=== PATIENT | male | born 1955 | race Caucasian/White ===

== ENCOUNTER 2024-01-08 06:40 | Observation (INO) ==
--- NOTE | 2024-01-08 07:00 | Emergency Department Note ---
History of Present Illness General Chief complaint: Vertigo Stated complaint: DIZZY Time Seen by Provider: 01/08/24 06:53 History of Present Illness This is a 68-year-old male that presents to the emergency department via private vehicle with complaints of "dizziness". The patient states that this morning around 0515 he began with dizziness described as the room is spinning with associated nausea. He also notes associated sinus pressure in the bilateral ears for the past 48 hours. Over the past month he has been treated for sinus infection. He does have a history of vertigo. Patient did take meclizine just prior to arrival with some improvement. At the present time he notes laying in the examination bed there is no current vertigo. He states that the vertigo does return with quick movements which seems to be what restarted his vertigo symptoms this morning when he quickly turned to get up out of bed. He does note some discomfort in the nasal region and occipital head which he describes as pressure. Patient states that he has been on antibiotics recently and shortly after completing the antibiotic course as prescribed he notes return of sinus congestion/sinus symptoms. He has been taking Claritin as well. No chest pain or shortness of breath. No fevers. No head trauma. Patient does note a history of vertigo that does feel similar to current presentation. He has had several intermittent episodes of vertigo as of recent with his ear pressure and sinus congestion. Last significant episode was 2 years ago and did require therapy. Review of the EMR does show PCP visit from 12/23/2023. At that time patient was diagnosed with a URI and due to chronicity of symptoms was started on prednisone and doxycycline. On 12/31/2023 patient did have a cardiology visit with Dr. Loera. Patient does have a history of bicuspid aortic with moderate to severe aortic regurgitation. Aortic root measures 4.6 cm with a 5.3 cm ascending aorta and dilated arch. The patient is status post aortic valve replacement with procedures performed on 03/11/2023 at [facility] by Dr. Camilo. Cardiology visit does document echo from 07/2023 revealing: Normal left ventricular size and systolic function; abnormal septal motion consistent with postoperative state: The basal to mid inferior and inferioseptum are akinetic. Ejection fraction 55%. Probable type II DD; mildly dilated right ventricle with severely reduced systolic function. In addition upon review of the EMR: Patient did have a CT head Noncontrast, CT angio head, MRI brain performed on November 13, 2022 in [place]. Ultimately at that time, the MRI returned normal. Home Medications Medication Instructions Recorded Confirmed Type apixaban 5 mg tablet (Eliquis) 5 mg PO BID 11/30/23 01/08/24 History dofetilide 500 mcg capsule 500 mcg PO Q12H 11/30/23 01/08/24 History ezetimibe 10 mg tablet 10 mg PO QAM 11/30/23 01/08/24 History furosemide 20 mg tablet (Lasix) 20 mg PO .COMPLEX 11/30/23 01/08/24 History meclizine 25 mg tablet 25 mg PO QID #30 tabs 12/10/23 01/08/24 Rx fluticasone propionate 50 2 spray intranasal Q12H #48 grams 01/06/24 01/08/24 Rx mcg/actuation nasal spray,suspension amoxicillin 500 mg capsule 2,000 mg PO .1HR BEFORE DENTAL PRN 01/08/24 01/08/24 History dental appointment aspirin 81 mg capsule 81 mg PO QAM 01/08/24 01/08/24 History cefdinir 300 mg capsule 300 mg PO BID Acute otitis media, 01/08/24 Rx left 5 days #10 caps diazepam 5 mg tablet (Valium) 5 mg PO DAILY PRN severe vertigo 01/08/24 Rx #3 tabs fluticasone propionate 50 1 spray intranasal DAILY PRN 01/08/24 Rx mcg/actuation nasal allergy symptoms #16 grams spray,suspension (Flonase Allergy Relief) ondansetron 4 mg disintegrating 4 mg PO Q6H PRN nausea and 01/08/24 Rx tablet vomiting #10 tabs prednisone 10 mg tablet See Rx Instructions PO .COMPLEX 01/08/24 Rx #42 tabs rosuvastatin 40 mg tablet 40 mg PO QPM 01/08/24 01/08/24 History Allergies Allergy/AdvReac Type Severity Reaction Status Date / Time No Known Allergies Allergy Verified 12/23/23 14:44 Past Med/Surg History Medical History Aortic valve regurgitation Surgical History H/O aortic valve replacement H/O heart artery stent Family History Father Prostate cancer Heart disease Cancer Diabetes Mother Kidney disease Denies family history of Ovarian cancer Breast cancer Colorectal cancer Social History Smoking Status: Never smoker Second Hand Exposure: No; Do You Dip or Chew Tobacco: No; Hx Alcohol Use: No Hx Substance Use: No Preferred Language: Thai Communication Ability: Effective Visual Impairment: No Limitations Hearing Ability: Normal Brass Chaser Required: No marital status: Current Living Situation: Spouse current occupational status: retired How many Children do You have: 2 Feels Safe at Home: Yes Childhood Exposure to Second-Hand Smoke: No Diet: regular caffeine: Yes during the past year weight has: increased > 10 lbs Dental Care, Regularly: Yes Physical Activity Frequency: Daily Seatbelt Use: always Sunscreen Use: Yes Assistive Devices: None Review of Systems A total of 10 systems reviewed and were otherwise negative Physical Exam Vital Signs Vital Signs - 24 hr 01/08/24 06:43 01/08/24 07:21 01/08/24 07:30 Temperature 36.2 C L Temperature Source Temporal Artery Scan Pulse Rate 67 68 71 Pulse Rate [Apical] Pulse Rate from SpO2 Sensor 69 71 Respiratory Rate 18 19 19 Respiratory Depth Blood Pressure 150/90 H Blood Pressure [Right Arm] Blood Pressure Mean 110 Blood Pressure Mean [Right Arm] Blood Pressure Position [Right Arm] Pulse Oximetry 96 93 96 Oxygen Delivery Method Room Air Room Air Room Air Sepsis Recent Fever Within 48 Hours No Sepsis New/Unexplained Change in Mental Status No Sepsis Action Taken by Nursing No Action Required 01/08/24 07:30 01/08/24 08:00 01/08/24 08:00 Temperature Temperature Source Pulse Rate 68 Pulse Rate [Apical] Pulse Rate from SpO2 Sensor 68 Respiratory Rate 16 Respiratory Depth Blood Pressure 131/89 124/89 Blood Pressure [Right Arm] Blood Pressure Mean 100 102 Blood Pressure Mean [Right Arm] Blood Pressure Position [Right Arm] Pulse Oximetry 92 Oxygen Delivery Method Room Air Sepsis Recent Fever Within 48 Hours Sepsis New/Unexplained Change in Mental Status Sepsis Action Taken by Nursing 01/08/24 08:24 01/08/24 08:30 01/08/24 08:30 Temperature Temperature Source Pulse Rate 66 69 Pulse Rate [Apical] Pulse Rate from SpO2 Sensor 69 Respiratory Rate 18 Respiratory Depth Blood Pressure 130/84 Blood Pressure [Right Arm] Blood Pressure Mean 98 Blood Pressure Mean [Right Arm] Blood Pressure Position [Right Arm] Pulse Oximetry 93 Oxygen Delivery Method Room Air Sepsis Recent Fever Within 48 Hours Sepsis New/Unexplained Change in Mental Status Sepsis Action Taken by Nursing 01/08/24 09:00 01/08/24 09:00 01/08/24 09:30 Temperature Temperature Source Pulse Rate 65 Pulse Rate [Apical] Pulse Rate from SpO2 Sensor 65 Respiratory Rate 19 Respiratory Depth Blood Pressure 128/89 123/88 Blood Pressure [Right Arm] Blood Pressure Mean 94 105 Blood Pressure Mean [Right Arm] Blood Pressure Position [Right Arm] Pulse Oximetry 96 Oxygen Delivery Method Room Air Sepsis Recent Fever Within 48 Hours Sepsis New/Unexplained Change in Mental Status Sepsis Action Taken by Nursing 01/08/24 09:30 01/08/24 10:00 01/08/24 10:00 Temperature Temperature Source Pulse Rate 64 68 Pulse Rate [Apical] Pulse Rate from SpO2 Sensor 65 69 Respiratory Rate 15 17 Respiratory Depth Blood Pressure 123/94 Blood Pressure [Right Arm] Blood Pressure Mean 109 Blood Pressure Mean [Right Arm] Blood Pressure Position [Right Arm] Pulse Oximetry 95 95 Oxygen Delivery Method Sepsis Recent Fever Within 48 Hours Sepsis New/Unexplained Change in Mental Status Sepsis Action Taken by Nursing 01/08/24 10:30 01/08/24 10:31 01/08/24 10:31 Temperature Temperature Source Pulse Rate 70 76 Pulse Rate [Apical] Pulse Rate from SpO2 Sensor 70 75 Respiratory Rate 20 17 Respiratory Depth Blood Pressure 132/88 Blood Pressure [Right Arm] Blood Pressure Mean 94 Blood Pressure Mean [Right Arm] Blood Pressure Position [Right Arm] Pulse Oximetry 97 97 Oxygen Delivery Method Room Air Sepsis Recent Fever Within 48 Hours Sepsis New/Unexplained Change in Mental Status Sepsis Action Taken by Nursing 01/08/24 13:07 01/08/24 14:13 Temperature Temperature Source Pulse Rate Pulse Rate [Apical] 87 84 Pulse Rate from SpO2 Sensor Respiratory Rate 18 18 Respiratory Depth Normal Blood Pressure Blood Pressure [Right Arm] 124/81 121/87 Blood Pressure Mean Blood Pressure Mean [Right Arm] 95 98 Blood Pressure Position [Right Arm] Lying Pulse Oximetry 95 98 Oxygen Delivery Method Room Air Room Air Sepsis Recent Fever Within 48 Hours Sepsis New/Unexplained Change in Mental Status Sepsis Action Taken by Nursing VITAL SIGNS - Vital signs and nursing notes were reviewed. Stable and afebrile. GENERAL - 68-year-old male appearing his stated age who is in no acute distress. Communicates well with provider and answers questions appropriately. SKIN - Without rashes. HEAD - NC/AT. EYES - PERRL with EOMI bilaterally. Sclera anicteric. Palpebral conjunctiva pink and moist with no injection noted. EARS - No deformities of external structures noted on gross examination bilaterally. No pain elicited with palpation of the tragus bilaterally. External auditory canals without discharge or otorrhea. Yellowish fluid present behind bilateral TMs without evidence of acute otitis media. No perforation. Handle of malleus, umbo, cone of light, pars tensa/flaccid all easily visualized. NOSE - Midline and without cyanosis. No epistaxis or purulent drainage noted. Septum midline without deviation or septal hematoma noted. MOUTH/OROPHARYNX - Without perioral cyanosis. Buccal mucosa pink and moist and without leukoplakia. Tongue midline with equal elevation of palate bilaterally. No tonsillar hypertrophy, erythema, or exudates noted. Good dentition noted. NECK - Neck with FROM. Supple to palpation. No lymphadenopathy noted. No nuchal rigidity. LUNGS - Chest wall symmetric without accessory muscle use, intercostals retractions, or central cyanosis. Normal vesicular breath sounds CTA B/L. No wheezes, rales, or rhonchi appreciated. CARDIAC - RRR ABDOMEN - Abdominal contour normal without pulsations or visible masses. BS normoactive all four quadrants. No tenderness, palpable masses, hepatosplenomegaly, or ascites noted. EXTREMITIES - No clubbing or peripheral cyanosis. No pretibial edema present. +5/5 strength noted in UE/LE bilaterally. NEUROLOGIC - Cranial nerves II through XII grossly intact. PSYCH - A&O. Pt is very pleasant and interacts well with examiner. Course Administered Medications Discontinued Medications Acetaminophen (Acetaminophen 325 Mg Tab) 650 mg PO NOW STA Stop: 01/08/24 13:27 Last Admin: 01/08/24 13:30 Dose: 650 mg Documented By: ANDREW Sodium Chloride (Nss) 500 mls @ 500 mls/hr IV .Q1H ONE Stop: 01/08/24 08:35 Last Infusion: 01/08/24 09:15 Dose: Infused Documented By: Admin: 01/08/24 07:54 Dose: 500 mls/hr Documented By: AMALIA Ceftriaxone Sodium (Rocephin) 50 mls @ 100 mls/hr IV ONE STA; Protocol Stop: 01/08/24 16:02 Last Infusion: 01/08/24 16:38 Dose: Infused Documented By: Admin: 01/08/24 16:04 Dose: 100 mls/hr Documented By: CARRILLO Loratadine (Loratadine 10 Mg Tab) 10 mg PO QAM CHELSEA Stop: 02/07/24 14:59 Last Admin: 01/08/24 16:03 Dose: 10 mg Documented By: CARRILLO Ondansetron HCl (Ondansetron Inj 2 Mg/Ml 2 Ml Vial) 4 mg IV NOW STA Stop: 01/08/24 07:42 Last Admin: 01/08/24 07:54 Dose: 4 mg Documented By: AMALIA Medical Decision Making Laboratory Data 01/08/24 Unknown 01/08/24 Unknown Lab Results 01/08/24 01/08/24 Range/Units 15:28 Unknown WBC 6.15 (4.8-10.8) K/ul RBC 4.96 (4.70-6.10) M/uL Hgb 15.6 (14.0-18.0) g/dl Hct 46.6 (42.0-52.0) % MCV 94.0 (80.0-100.0) fL MCH 31.5 (25.0-34.0) pg MCHC 33.5 (32.0-36.0) g/dL RDW Std Deviation 48.1 H (36.4-46.3) fL RDW Coeff of Malena 13.9 (11.5-14.5) % Plt Count 126 L (130-400) K/uL MPV 10.7 (9.4-12.4) fL Immature Gran % (Auto) 0.8 % Neut % (Auto) 56.6 % Lymph % (Auto) 28.6 % Dougherty % (Auto) 11.2 % Eos % (Auto) 2.0 % Baso % (Auto) 0.8 % Neut # (Auto) 3.48 (1.40-6.50) K/uL Lymph # (Auto) 1.76 (1.20-3.40) K/uL Dougherty # (Auto) 0.69 H (0.11-0.59) K/uL Eos # (Auto) 0.12 (0.00-0.50) K/uL Baso # (Auto) 0.05 (0.00-0.20) K/uL Immature Gran # (Auto) 0.05 (0.01-0.20) K/uL PT 10.0 (9.0-12.0) Seconds INR 0.9 (0.9-1.1) APTT 24 (21-31) Seconds PTT Ratio 0.9 Sodium 142 (136-145) mmol/L Potassium 4.7 (3.5-5.1) mmol/L Chloride 110 H (98-107) mmol/L Carbon Dioxide 28 (21-32) mmol/L Anion Gap 4 (3-11) BUN 11 (6-23) mg/dl Creatinine 0.92 (0.6-1.4) mg/dl Est Cr Clr Drug Dosing 89.1 ml/min Est GFR ( Amer) 100.1 ml/min Est GFR (Non-Af Amer) 86.4 ml/min BUN/Creatinine Ratio 12.0 (10-20) Glucose 114 H (70-99(Fasting)) mg/dl Calcium 8.8 (8.6-10.3) mg/dl Total Bilirubin 0.5 (0.2-1.0) mg/dl AST 21 (13-39) U/L ALT 32 (7-52) U/L Alkaline Phosphatase 59 (34-104) U/L Troponin I High Sens 4.9 (0-20) pg/ml Total Protein 6.4 (6.0-8.3) gm/dl Albumin 3.8 (3.4-5.0) gm/dl Globulin 2.6 (2.5-4.0) gm/dl Albumin/Globulin Ratio 1.5 (0.9-2) TSH 5.284 H (0.300-4.500) uIu/ml Free T4 0.80 (0.61-1.60) ng/dl Adenovirus (PCR) Not Detected (NotDetected) B. pertussis DNA (PCR) Not Detected (NotDetected) B.parapertussis DNA PCR Not Detected (NotDetected) C. pneumoniae DNA (PCR) Not Detected (NotDetected) Coronavirus OC43 (PCR) Not Detected (NotDetected) Coronavirus HKU1 (PCR) Not Detected (NotDetected) Coronavirus 229E (PCR) Not Detected (NotDetected) SARS-CoV-2 (PCR) Not Detected (NotDetected) Coronavirus NL63 (PCR) Not Detected (NotDetected) Human Metapneumovir PCR Not Detected (NotDetected) Influenza Type A (PCR) Not Detected (NotDetected) Influenza Type B (PCR) Not Detected (NotDetected) M. pneumoniae (PCR) Not Detected (NotDetected) Parainfluenza 1 (PCR) Not Detected (NotDetected) Parainfluenza 2 (PCR) Not Detected (NotDetected) Parainfluenza 3 (PCR) Not Detected (NotDetected) Parainfluenza 4 (PCR) Not Detected (NotDetected) RSV (PCR) Not Detected (NotDetected) Entero/Rhino (PCR) Not Detected (NotDetected) Imaging Data Radiologist's Impression: Brain MRI 01/08/24 09:51 MRI OF THE BRAIN WITHOUT CONTRAST CLINICAL HISTORY: vertigo, dizziness, headache COMPARISON STUDY: Head CT performed earlier today. TECHNIQUE: Utilizing a 1.5 Bev magnet and dedicated coil, multiplanar, multiecho imaging of the brain was performed without IV contrast. FINDINGS: There are no foci of restricted diffusion to suggest acute infarct. No acute intracranial hemorrhage, midline shift or mass effect is present. Brain volume is normal. Basal cisterns are patent. There are no extra-axial collections. Flow-voids for the major intracranial vessels are present. 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 Mild white matter T2 hyperintense foci suggest small vessel disease. Calvarial signal is normal. No orbital abnormality is identified. IMPRESSION: 1. No acute intracranial findings. 2. 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 Mild small vessel disease. ACT 112: Negative or not required by law. Electronically signed by: Teja Nichole M.D. 01/08/2024 12:[address] SCAN OF THE BRAIN WITHOUT IV CONTRAST CLINICAL HISTORY: Headache. Vertigo. COMPARISON STUDY: No priors. TECHNIQUE: Unenhanced axial CT scan of the brain is performed from the vertex to the skull base. A dose lowering technique was utilized adhering to the principles of ALARA. CT DOSE: 625.8 mGy.cm FINDINGS: Brain parenchyma: There is minimal microangiopathic change. There is no hemorrhage, mass effect, or evidence of acute territorial ischemia by CT criteria. Gutierrez-white matter differentiation is preserved. No extra-axial fluid collection is seen. Ventricles, sulci, cisterns: Normal in configuration. Intracranial vasculature: There is atherosclerotic calcification of the cavernous carotid and vertebral arteries. Calvarium: Unremarkable. Sinuses and mastoids: The visualized paranasal sinuses are clear. The mastoid air cells are well pneumatized. Orbits: The bony orbits are grossly intact. IMPRESSION: There is no hemorrhage, mass effect, or evidence of acute territorial ischemia by CT criteria. ACT 112: Negative or not required by law. Electronically signed by: Candelario Bueno M.D. 01/08/2024 8:22 AM [facility] Narrative Patient was seen and evaluated as above in room B03. Review was performed of triage nursing notes and vital signs. I did review pertinent previous visits and patient history. After obtaining a thorough history and physical examination the above work up was performed. Patient presents to us today for evaluation of vertigo. He also has a headache with the vertigo. Over the past several weeks he has been experiencing sinus congestion and has been on amoxicillin, Augmentin and doxycycline as well as 2 rounds of prednisone per review of EMR. The patient's vertigo symptoms are positional. He did take meclizine earlier today and on my examination of the patient presently there is no current vertigo symptoms. No nystagmus. No deficits. No fever. No evidence of meningitis or encephalitis. No signs of head trauma/injury. GCS: 15. Options of care were discussed with the patient. IV access was established. Labs were drawn. EKG was obtained and reveals normal sinus rhythm at a rate of 70 bpm. QTc 451. QRS 74. No ST elevation. With the patient's vertigo symptoms improving with the meclizine but with continued nausea, we will proceed with IV Zofran, and will replete fluid lost through his vomiting today via IV fluids. Labs reveal no leukocytosis or concerning anemia. Mild thrombocytopenia with platelet count at 126. Mild elevation of chloride at 110. No emergent metabolic disturbance. Mild hyperglycemia 114. TSH mildly elevated at 5.2 with a normal free T4. Troponin within normal range. CT head noncontrast returned negative. Patient symptoms continued with movement therefore MRI of the brain was performed. MRI results as above. No acute intracranial findings. 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 Mild small vessel disease per radiologist. I did discuss this with neurology, and spoke with Dr. Mireles. At this time outpatient follow-up is recommended and he may require physical therapy for the vertigo and neurology follow-up as an outpatient. Neurology also recommended considering a benzodiazepine such as diazepam or lorazepam. I will note that the patient's vertigo symptoms are felt to be likely secondary to his inner ear issues noting the recent sinus congestion rather than from the MRI findings. I then reviewed these findings recommendations with the patient. Patient is concerned that he may return home and not be able to manage symptoms noting even return of symptoms while laying in the examination bed. With the patient's persistence of symptoms and findings above I did discuss case with the hospitalist service for possible admission. I was then notified by the hospitalist that after they examined the patient and reviewed plan, preferences discharge home. I then reviewed this with the patient and he does prefer discharge home. Please refer to the hospitalist note regarding consultation. A large portion of the discharge instructions were generated by the hospitalist as well as prescriptions for multiple medications. However, I did also add Flonase at the recommendation of the hospitalist. At this time the patient will be discharged home to follow closely with his primary care provider. Patient happy with this plan and notes that he will return with any worsening or persistence of symptoms. I did provide contact information for local ENT follow-up as well. Please note that the discharge instructions viewable in this note are not premium representative of the patient's complete discharge instructions as most were generated by the hospitalist therefore please refer to the patient's "ED discharge packet" in the EMR regarding complete discharge instructions. While in the department, I personally reevaluated the patient several times and each time the patient was found to be resting comfortably. The patient was educated upon management, educated upon todays findings/results, educated upon importance of follow up from today's visit, educated upon symptoms in which to return, had questions answered prior to discharge, verbalized understanding, and was discharged home in good condition. Case was discussed with the attending physician. GCS: 15 In the evaluation and treatment of this patient the following differential diagnoses were entertained: Meningitis, encephalitis, BPPV, malignancy, stroke, mass, electrolyte disturbance, A-fib, among others Impression & Plan Vertigo, Sinus congestion Discharge Plan Visit Data Chief Complaint: Vertigo Stated Complaint: DIZZY ED Provider: Candelario Pollard ED Midlevel Provider: Efren Fernandez Discharge Problem: Vertigo, Sinus congestion Patient Disposition: Admitted As Inpatient Condition: Good Discharge Instructions Interventions: ED Discharge Assessment Last Done: 01/08/24 16:50
[2024-01-08 07:47] LABS: Basophils # (auto) 0.05 K/uL (0.00-0.20); Basophils % (auto) 0.8 %; Eosinophils # (auto) 0.12 K/uL (0.00-0.50); Hematocrit (blood only) 46.6 % (42.0-52.0); Hemoglobin 15.6 g/dl (14.0-18.0); Immature Granulocytes # (auto) 0.05 K/uL (0.01-0.20); Immature Granulocytes % (auto) 0.8 %; Lymphocytes # (auto) 1.76 K/uL (1.20-3.40); Lymphocytes % (auto) 28.6 %; Mean Corpuscular Hemoglobin 31.5 pg (25.0-34.0); Mean Corpuscular Hgb Conc 33.5 g/dL (32.0-36.0); Mean Platelet Volume 10.7 fL (9.4-12.4); Monocytes # (auto) 0.69 K/uL (0.11-0.59); Monocytes % (auto) 11.2 %; Neutrophils # (auto) 3.48 K/uL (1.40-6.50); Neutrophils % (auto) 56.6 %; Platelet Count 126 K/uL (130-400); RDW Coefficient of Variation 13.9 % (11.5-14.5); RDW Standard Deviation 48.1 fL (36.4-46.3); Red Blood Count 4.96 M/uL (4.70-6.10); White Blood Count 6.15 K/ul (4.8-10.8)
[2024-01-08] MEDS: ONDANSETRON INJ 2 MG/ML 2 ML VIAL IV STA (07:54)
[2024-01-08] MEDS: SODIUM CHLORIDE 0.9% 500 ML IV ONE (07:54)
[2024-01-08 07:55] LABS: INR 0.9 (0.9-1.1); Partial Thromboplastin Ratio 0.9; Partial Thromboplastin Time 24 Seconds (21-31)
[2024-01-08 08:07] LABS: Albumin Globulin Ratio 1.5 (0.9-2); Albumin Level 3.8 gm/dl (3.4-5.0); Bilirubin,Total 0.5 mg/dl (0.2-1.0); Calcium 8.8 mg/dl (8.6-10.3); Creatinine Clr Calc Pharmacy 89.1 ml/min; Est GFR (African American) 100.1 ml/min; Est GFR (Non-African American) 86.4 ml/min; Globulin 2.6 gm/dl (2.5-4.0); Potassium 4.7 mmol/L (3.5-5.1); Total Protein 6.4 gm/dl (6.0-8.3)
[2024-01-08 08:12] LABS: Troponin I High Sensitivity 4.9 pg/ml (0-20)
[2024-01-08 08:21] LABS: Thyroid Stimulating Hormone 5.284 uIu/ml (0.300-4.500)
--- NOTE | 2024-01-08 08:25 | CT Scan Report ---
CT SCAN OF THE BRAIN WITHOUT IV CONTRAST CLINICAL HISTORY: Headache. Vertigo. COMPARISON STUDY: No priors. TECHNIQUE: Unenhanced axial CT scan of the brain is performed from the vertex to the skull base. A d ose lowering technique was utilized adhering to the principles of ALARA. CT DOSE: 625.8 mGy.cm FINDINGS: Brain parenchyma: There is minimal microangiopathic change. There is no hemorrhage, mass effect, or e vidence of acute territorial ischemia by CT criteria. Gutierrez-white matter differentiation is preserved. No extra-axial fluid collection is seen. Ventricles, sulci, cisterns: Normal in configuration. Intracranial vasculature: There is atherosclerotic calcification of the cavernous carotid and vertebr al arteries. Calvarium: Unremarkable. Sinuses and mastoids: The visualized paranasal sinuses are clear. The mastoid air cells are well pneu matized. Orbits: The bony orbits are grossly intact. IMPRESSION: There is no hemorrhage, mass effect, or evidence of acute territorial ischemia by CT candie dunlap. ACT 112: Negative or not required by law. Electronically signed by: Candelario Bueno M.D. 01/08/2024 8:22 AM
[2024-01-08 08:58] LABS: T4 Free Thyroxine 0.8 ng/dl (0.61-1.60)
--- NOTE | 2024-01-08 09:47 | Emergency Department Note ---
ED Visit Note I was consulted by the Advanced Practice Provider. The case was discussed at length. I personally made/approved the management plan and take responsibility for the patient management. I performed a substantive portion of the visit. This includes the aspects of: Patient presents with dizziness and vertigo. MRI imaging shows some older cerebellar strokes. The patient was treated here for his symptoms and they were persistent. Neurology was consulted. Admission is warranted. .
--- OUTSIDE RECORDS SUMMARY | 2024-01-08 10:31 | External Medical Summary | Continuity of Care Document ---
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 Aortic aneurysm(Discharge Diagnosis) - 12/31/23 CAD (coronary artery disease)(Discharge Diagnosis) - 12/31/23 Diastolic CHF(Discharge Diagnosis) - 12/31/23 Bicuspid aortic valve(Discharge Diagnosis) - 12/31/23 S/P aortic valve replacement with bioprosthetic valve(Discharge Diagnosis) - 12/31/23 Status post ascending aortic aneurysm repair(Discharge Diagnosis) - 12/31/23 Aortic aneurysm of unspecified site, 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) - Aneurysm of the aortic arch, 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) - Congenital insufficiency of aortic valve(Final) - Atherosclerotic heart disease of [place] coronary artery without angina pectoris (Final) - Unspecified diastolic (congestive) heart failure(Final) - Presence of xenogenic heart valve(Final) - Other specified postprocedural states(Final) - Paroxysmal atrial fibrillation(Final) - Hyperkalemia(Discharge Diagnosis) - 01/01/24 Discharge Disposition: Home or Self Care Attending Physician: DO Loera Jason D Allergies, Adverse Reactions, Alerts Substance Reaction Severity Status Entresto lightheaded Active Assessment and Plan Extracted from: Title:Cardiology Office Visit Note Author:DO Loera Jason D Date:12/31/23 1.Aortic aneurysm 2.Aortic arch aneurysm 3.Bicuspid aortic valve 4.CAD (coronary artery disease) 5.Diastolic CHF 6.S/P aortic valve replacement with bioprosthetic valve 7.Status post ascending aortic aneurysm repair He is clearly doing markedly better in sinus rhythm compared to when he was in atrial fibrillation. His heart failure symptoms are dramatically better. His functional capacity has improved as well. I did review his EKG with him today. There is no evidence of QT prolongation. He does need laboratory studies to make sure his creatinine and potassium are acceptable. He is scheduled to go to [facility] in the summer for repeat CAT scan of his entire aorta as well as an echocardiogram. Hopefully with episcopalian of sinus rhythm and time/distance from his aortic valve surgery his RV will improve which will reduce his risk of progressive RV dysfunction and right-sided heart failure. The challenges he is really intolerant of any additional medications from a blood pressure standpoint. He is had lightheadedness on Entresto. He still has some mild lightheadedness even with a loop diuretic. Starting spironolactone to be a challenge. For now we will continue to observe. He will come back in 4 months time with repeat laboratory studies and an EKG. We discussed if he is feeling worse or notes that his heart rate is elevated again and irregular he needs to let us know. Medications amoxicillin 500 mg oral capsule Start: 08/27/23 10:31:00 EST, 4 cap, PO, As indicated, Disp# 12 cap, Refills: 3, one hour before dental and other procedures as directed, Pharmacy: [facility] Start Date: 08/27/23 Status: Ordered apixaban 5 mg oral tablet Start: 09/15/23 14:05:00 EST, 1 tab, PO, bid, Disp# 180 tab, Refills: 3, Pharmacy: [facility] Start Date: 09/15/23 Status: Ordered aspirin 81 mg oral capsule Start: 09/15/23 14:05:00 EST, 1 cap, PO, Daily, Disp# 90 cap, Refills: 3, Pharmacy: [facility] Start Date: 09/15/23 Status: Ordered ezetimibe 10 mg oral tablet Start: 09/15/23 14:05:00 EST, 1 tab, PO, Daily, Disp# 90 tab, Refills: 3, Pharmacy: [facility] Start Date: 09/15/23 Status: Ordered Lasix 20 mg oral tablet Start: 09/15/23 14:05:00 EST, See Instructions, Disp# 45 tab, Refills: 3, 1 tab PO M/W/F, Pharmacy:[facility] Start Date: 09/15/23 Status: Ordered MiraLax oral powder for reconstitution Start: 08/03/23 14:28:00 EDT, 17 g =, PO, Daily, PRN: constipation Start Date: 08/03/23 Status: Ordered rosuvastatin 40 mg oral tablet Start: 09/15/23 14:05:00 EST, 1 tab, PO, Daily, Disp# 90 tab, Refills: 3, Pharmacy: [facility] Start Date: 09/15/23 Status: Ordered Tikosyn 500 mcg oral capsule Start: 09/15/23 14:05:00 EST, 1 cap, PO, q12h, Disp# 180 cap, Refills: 3, Pharmacy: [facility] Start Date: 09/15/23 Status: Ordered Tylenol Start: 08/03/23 14:27:00 EDT Start Date: 08/03/23 Status: Ordered Mental Status 12/31/23 Barriers to Learning one year None evide nt Mandatory Health Literacy Documentation Yes Health Literacy Communication Barriers N ever Primary Language Turkmen Problem List Condition Confirmation Course Effective Dates Status H ealt Status Informant Aortic arch aneurysm Confirmed Active Aortic aneurysm Confirmed Active Bicuspid aortic valve Confirmed Active Brachial plexopathy Confirmed Active CAD (coronary artery disease) Confirmed Active Diastolic CHF Confirmed Active On apixaban therapy Confirmed Active S/P aortic valve replacement with bioprosthetic valve Confirmed Active H/O aortic root repair Confirmed Active Status post ascending aortic aneurysm repair Confirmed Active Hyperlipidemia Confirmed Active PAF (paroxysmal atrial fibrillation) Confirmed Active Thoracic back pain Confirmed Active Diagnosis Diagnosis Type Effective Dates Health Status Clinical Service Informant CAD (coronary artery disease) Discharge Diagnosis 12/31/23 Status post ascending aortic aneurysm repair Discharge Diagnosis 12/31/23 Bicuspid aortic valve Discharge Diagnosis 12/31/23 Diastolic CHF Discharge Diagnosis 12/31/23 Aortic arch aneurysm Discharge Diagnosis 12/31/23 Aortic aneurysm Discharge Diagnosis 12/31/23 S/P aortic valve replacement with bioprosthetic valve Discharge Diagnosis 12/31/23 Hyperkalemia Discharge Diagnosis 01/01/24 Non-Specified Results Laboratory List Name Date Comprehensive Metabolic Panel (COMP META B PANEL) 12/31/23 Lipid Profile (LIPOPROTEINS) 12/31/23 Magnesium Level (MAGNESIUM) 12/31/23 Most recent to oldest [Reference Range]: 1 eGFR CKD-EPI [>60 mL/min/1.73 m2] 82 mL/ min/1.73 m2 (12/31/23 3:58 PM) Non-HDL 72 mg/dL (12/31/23 3:58 PM) Estimated CrCl 78.11 mL/min (12/31/23 8:14 PM) Anion Gap [5-14 mmol/L] 12 mmol/L (12/31/23 3:58 PM) Alb [3.5-5.2 g/dL] 4.2 g/dL (12/31/23 3:58 PM) Alk Phos [40-130 unit/L] 76 unit/L 1 (12/31/23 3:58 PM) ALT [0-41 unit/L] 48 unit/L *HI* (12/31/23 3:58 PM) AST [0-40 unit/L] 23 unit/L (12/31/23 3:58 PM) BUN [6-23 mg/dL] 21 mg/dL (12/31/23 3:58 PM) Ca [8.4-10.2 mg/dL] 9.3 mg/dL (12/31/23 3:58 PM) Chol/HDL 2 (12/31/23 3:58 PM) Chol [<200 mg/dL] 139 mg/dL (12/31/23 3:58 PM) Cl- [98-107 mmol/L] 105 mmol/L (12/31/23 3:58 PM) HCO3 [22-29 mmol/L] 27 mmol/L (12/31/23 3:58 PM) Cret [0.70-1.30 mg/dL] 1.01 mg/dL (12/31/23 3:58 PM) Glu [74-109 mg/dL] 92 mg/dL 2 (12/31/23 3:58 PM) HDL [>40 mg/dL] 67 mg/dL (12/31/23 3:58 PM) K [3.5-5.1 mmol/L] 5.7 mmol/L *HI* (12/31/23 3:58 PM) LDL Chol, Calculated [50-130 mg/dL] 56 m g/dL (12/31/23 3:58 PM) Mg [1.6-2.6 mg/dL] 2.7 mg/dL *HI* (12/31/23 3:58 PM) Na [136-145 mmol/L] 144 mmol/L (12/31/23 3:58 PM) T Bili [0.0-1.2 mg/dL] 0.8 mg/dL (12/31/23 3:58 PM) Prot [6.4-8.3 g/dL] 6.6 g/dL (12/31/23 3:58 PM) TG [<150 mg/dL] 82 mg/dL (12/31/23 3:58 PM) 1Result Comment: Low levels of ALKP may indicate a deficiency in zinc, magnesium, or malnutritionbutcan also be an indicator of a rare genetic disease hypophosphatasia (HPP). 2Result Comment: ADA recommendation for FASTING Serum/Plasma Glucose: Normal: 70-100 mg/dL Prediabetes: 100-125 mg/dL Diabetes: 126 mg/dL or higher Vital Signs Most recent to oldest [Reference Range]: 1 Patient Weight 93 kg (12/31/23 3:18 PM) Heart Rate 66 bpm (12/31/23 3:18 PM) Blood Pressure 108/66mmHg (12/31/23 3:18 PM) Cuff Pulse Pressure 42 mmHg (12/31/23 3:18 PM) BP Location # 1 Left Arm (12/31/23 3:18 PM) Social History Social History Type Response Smoking Status Never smoked cigaret eunice Sex Male Radiology * Contributor_system, [id number]: VERIFY, PERFORM Event Display: EKG Authored Date: Please click on link to see image. Cardiology Outpatient Note * DO Loera Jason D: PERFORM Event Display: Cardiology Outpt Note Authored Date: Primary Care Provider DO Foreman Philip A Chief Complaint 3 mon f/u History of Present Illness He feels much better back in sinus rhythm. We have tried low-dose Entresto unfortunately made himvery orthostatic. He still continues to have some lightheadedness Even with his current dose of diuretics. He denies any bleeding or bruising. He has no palpitations or fluttering. He denies any presyncope or syncope. His appetite stable and his weight is stable. He is tolerating Tikosyn without any issues. He notes his lower extremity him is much improved with diuretics and compression stockings. He still continues to have brachial plexus issues with numbness in his hands. Review of Systems PMHX: 1. Bicuspid aortic with moderate to severe aortic regurgitation, 4.6 cm aortic root; 5.3 cm ascending aorta; dilated arch 2. Status post hemiarch with a 28 mm graft; aortic valve replacement with a 29 mm connect bio Bentall aortic root with reimplantation of his coronary arteries and connection to the transverse hemiarch graft (03/11/2023 [facility] with Dr. Camilo) 3. History of bicuspid aortic valve 4. Preop cardiac catheterization August 2022 with a severely elevated left ventricular end-diastolic pressure at 31 mmHg; left dominant circulation with a 50% narrowing just prior to the takeoff of the left PDA; LADlarge vesselwith 2moderate diagonalsWith a widely patent prior LAD stent; small nondominant RCA 5. LAD stent in 6. Hx of orthostatic Hypotension 7. Chronic diastolic CHF and right sided CHF 8. New Onset Afib -- ? when 9. ECHO 07/2023: 2. Normal left ventricular size and systolic function; Abnormal septal motion consistent with post-operative state, The basal to mid inferior and inferoseptum are akinetic;Ejection fraction 55%; Probably Type 2 DD; Mildly dilated right ventricle with severely reduced systolic function, TAPSE is severely decreased, 0.9 cm; Moderatelybiatrial dilation; Well-seated 29 mm bioprosthetic aortic valve replacement with normal hemodynamics and no insufficiency; Normal estimated pulmonary artery pressures, estimated PASP is 21 mmHg. Physical Exam Vitals & Measurements HR:66(Monitored) BP:108/66 SpO2:98% WT:93.000kg(Dosing) WT:93kg Patient is awake alert and oriented x3and in no acute distress HEENT:2+ carotid upstrokes, no evidence of carotid bruits LUNGS:Clear to auscultation bilaterally no rales rhonchi or wheezing; HEART:Regular rate and rhythm, no appreciable murmurs rubs or gallops ABDOMEN:Soft nontender nondistended positive bowel sounds EXTREMITIES:No evidence of clubbing or cyanosis; no edema PSYCHIATRIC:Patient's affect appeared appropriate EKG Normal sinus rhythm at 67 bpm, left atrial enlargement, normal QTc on Tikosyn Assessment/Plan 1.Aortic aneurysm 2.Aortic arch aneurysm 3.Bicuspid aortic valve 4.CAD (coronary artery disease) 5.Diastolic CHF 6.S/P aortic valve replacement with bioprosthetic valve 7.Status post ascending aortic aneurysm repair He is clearly doing markedly better in sinus rhythm compared to when he was in atrial fibrillation. His heart failure symptoms are dramatically better. His functional capacity has improved as well. I did review his EKG with him today. There is no evidence of QT prolongation. He does need laboratory studies to make sure his creatinine and potassium are acceptable. He is scheduled to go to [facility] in the summer for repeat CAT scan of his entireaorta as well as an echocardiogram. Hopefully with episcopalian of sinus rhythm and time/distance from his aortic valve surgery his RV will improve which will reduce his risk of progressive RV dysfunction and right-sided heart failure. The challenges he is really intolerant of any additional medications from a blood pressure standpoint. He is had lightheadedness on Entresto. He still has some mild lightheadedness even with a loop diuretic. Starting spironolactone to be a challenge. For now we will continue to observe. He will come back in 4 months time with repeat laboratory studies and an EKG. We discussed if he is feeling worse or notes that his heart rate is elevated again and irregular he needs to let us know. Problem List/Past Medical History Ongoing Aortic aneurysm Aortic arch aneurysm Bicuspid aortic valve Brachial plexopathy CAD (coronary artery disease) Diastolic CHF H/O aortic root repair Hyperlipidemia On apixaban therapy PAF (paroxysmal atrial fibrillation) S/P aortic valve replacement with bioprosthetic valve Status post ascending aortic aneurysm repair Thoracic back pain Medications acetaminophen(Tylenol) amoxicillin(amoxicillin 500 mg oral capsule), 2000 mg= 4 cap, PO, As indicated, 3 refills apixaban(apixaban 5 mg oral tablet), 5 mg= 1 tab, PO, bid, 3 refills aspirin(aspirin 81 mg oral capsule), 81 mg= 1 cap, PO, Daily, 3 refills dofetilide(Tikosyn 500 mcg oral capsule), 500 mcg= 1 cap, PO, q12h, 3 refills ezetimibe(ezetimibe 10 mg oral tablet), 10 mg= 1 tab, PO, Daily, 3 refills furosemide(Lasix 20 mg oral tablet), See Instructions, 3 refills polyethylene glycol 3350(MiraLax oral powder for reconstitution), 17 g, PO, Daily, PRN rosuvastatin(rosuvastatin 40 mg oral tablet), 40 mg= 1 tab, PO, Daily, 3 refills Allergies Entrestolightheaded Social History Smoking Status Never smoked cigarettes Electronic Signature on File CC: Grupo Foreman DO [address] [place], [place] [id number] * Electronically Reviewed/Signed by: Karlos Loera DO Author Signature Dt/Tm:12/31/2023 04:29 PM [employer] Puncherinfrastructure software engineer [facility] [place] [address] JDF Patient Care team information Care Team Personnel Name: Maddi Boo Position: Enterostomal Nurse Member Role: .System Support - never expires Name: DO Foreman Philip A Position: Referring Member Role: Primary Care Provider Address: Address: [address] [place] [id number] Name: Katelyn Schafer Ashley Position: Pharmacist Schedule II Member Role: Pharmacy - Lifetime Name: Katelyn Barnett Christine Position: Pharmacist Member Role: Pharmacy - Lifetime Address: Address: [address] [place] [id number]
--- NOTE | 2024-01-08 12:48 | Magnetic Resonance Report ---
MRI OF THE BRAIN WITHOUT CONTRAST CLINICAL HISTORY: vertigo, dizziness, headache COMPARISON STUDY: Head CT performed earlier today. TECHNIQUE: Utilizing a 1.5 Bev magnet and dedicated coil, multiplanar, multiecho imaging of the bra in was performed without IV contrast. FINDINGS: There are no foci of restricted diffusion to suggest acute infarct. No acute intracranial h emorrhage, midline shift or mass effect is present. Brain volume is normal. Basal cisterns are patent . There are no extra-axial collections. Flow-voids for the major intracranial vessels are present. Th ere are suspected tiny old bilateral cerebellar infarcts. Mild white matter T2 hyperintense foci sugg est small vessel disease. Calvarial signal is normal. No orbital abnormality is identified. IMPRESSION: 1. No acute intracranial findings. 2. 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 Mild small vessel disease. ACT 112: Negative or not required by law. Electronically signed by: Teja Nichole M.D. 01/08/2024 12:47 PM
[2024-01-08] MEDS: ACETAMINOPHEN 325 MG TAB PO STA (13:30)
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
[2024-01-08] MEDS: LORATADINE 10 MG TAB PO SCH (16:03)
--- NOTE | 2024-01-08 16:14 | Electrocardiogram Report ---
Test Reason : Blood Pressure : / mmHG Vent. Rate : 070 BPM Atrial Rate : 070 BPM P-R Int : 184 ms QRS Dur : 074 ms QT Int : 418 ms P-R-T Axes : 048 011 053 degrees QTc Int : 451 ms Normal sinus rhythm Possible Left atrial enlargement Borderline ECG No previous ECGs available Confirmed by Jesús Hager ([id number]) on 01/08/2024 4:14:20 PM Referred By: REFERRED SELF Confirmed By:Jesús Hager
[2024-01-08 16:24] LABS: Adenovirus PCR Not Detected (NotDetected); Bordetella parapertussis PCR Not Detected (NotDetected); Bordetella pertussis PCR Not Detected (NotDetected); Chlamydia pneumoniae PCR Not Detected (NotDetected); Coronavirus 229E PCR Not Detected (NotDetected); Coronavirus CoV-2 (COVID19)PCR Not Detected (NotDetected); Coronavirus HKU1 PCR Not Detected (NotDetected); Coronavirus NL63 PCR Not Detected (NotDetected); Coronavirus OC43PCR Not Detected (NotDetected); Human Metapneumovirus PCR Not Detected (NotDetected); Influenza A PCR Not Detected (NotDetected); Influenza B PCR Not Detected (NotDetected); Mycoplasma pneumoniae PCR Not Detected (NotDetected); Parainfluenza Virus 1 PCR Not Detected (NotDetected); Parainfluenza Virus 2 PCR Not Detected (NotDetected); Parainfluenza Virus 3 PCR Not Detected (NotDetected); Parainfluenza Virus 4 PCR Not Detected (NotDetected); Respiratory Syncytial VirusPCR Not Detected (NotDetected); Rhinovirus/Enterovirus PCR Not Detected (NotDetected)
[2024-01-09] MEDS ORDERED: cefTRIAXone SODIUM 2,000 MG in DEXTROSE 5 % MINI-B 50 ML IV SCH (16:00)
== END 2024-01-08 16:50 | disposition home or self-care (01) ==
LOC: ED 06:40 → EDINP 06:40
DX: Z95.2 Presence of prosthetic heart valve; G47.33 Obstructive sleep apnea (adult) (pediatric); J32.9 Chronic sinusitis, unspecified; Z79.52 Long term (current) use of systemic steroids; I48.91 Unspecified atrial fibrillation; H83.2X9 Labyrinthine dysfunction, unspecified ear; R60.9 Edema, unspecified; H81.10 Benign paroxysmal vertigo, unspecified ear; Z95.5 Presence of coronary angioplasty implant and graft; H66.92 Otitis media, unspecified, left ear; Z79.01 Long term (current) use of anticoagulants; Z79.899 Other long term (current) drug therapy